=== PATIENT | male | born 1945 | race Caucasian/White ===

== ENCOUNTER 2017-09-11 14:07 | Emergency (ER) | payer MEDICARE, BC ==
[~2017-09-11] VITALS: Ht 182.9 cm; Wt 108.9 kg
[~2017-09-11 14:07] MED LIST: ACETAMINOPHEN325 M1 PO; ASPIRIN EC81 M1 PO; CARDIZEM CD240 MG PO; COUMADIN 2.5MG2.5 M1 PO; COUMADIN 5 MG TA5 M1 PO; DEPO-TESTO200 MG/1 M PO; EFFEXOR XR150 MG PO; FERREX-150 PLU150 MG PO; HYDROCHLOROTH12.5 MG PO; HYDROCODON-ACE1 EAC7 PO; HYTRIN10 MG PO; IRON325 PO; LOPRESSOR 50 MG50 M1 PO; MOM PO; MULTIVITAMINS PO; NAC600 MG PO; NORCO 5-325 TA1 EACH PO; PHENERGAN 25 MG25 M1 PO; PHISOHEX148 ML TOP; PRILOSEC 20 MG20 MG PO; SENOKOT-S1 TA1 PO; TAMSULOSIN HCL0.4 M1; TUMS PO; UNIVASC7.5 MG PO; ZOCOR40 MG PO; ZOVIRAX 5% CR2 G1 TP
[2017-09-11 15:17] VITALS: BP 130/84
== END 2017-09-11 15:18 | disposition home or self-care (01) ==
LOC: M.ERS 14:07
DX: S81.812A Laceration without foreign body, left lower leg, initial encounter (principal); I10 Essential (primary) hypertension; E78.5 Hyperlipidemia, unspecified; K21.9 Gastro-esophageal reflux disease without esophagitis; F32.9 Major depressive disorder, single episode, unspecified; M19.90 Unspecified osteoarthritis, unspecified site; Z86.2 Personal history of diseases of the blood and blood-forming organs and certain disorders involving the immune mechanism; Z88.6 Allergy status to analgesic agent; Z88.0 Allergy status to penicillin; Z88.1 Allergy status to other antibiotic agents; W26.0XXA Contact with knife, initial encounter; Y93.89 Activity, other specified; Y92.89 Other specified places as the place of occurrence of the external cause; Y99.8 Other external cause status

== ENCOUNTER → 2018-03-31 | Outpatient (CLI) | payer MEDICARE, BC ==
--- NOTE | 2018-03-31 14:35 | 2DMMODE ---
[place] [address] 2 D/M-MODE ECHOCARDIOGRAM Name: SONIAASPEN CANDIDO Room: [facility]#: [id number] Admission: 03/31/18 Attend Phys: Louie Saez MD Discharge: Date of : 41 Date of Service: 03/31/18 1435 Report #: [id number] THIS REPORT FOR: //name// APPROVED REPORT Study performed: 03/31/2018 08:15:25 EXAM: Comprehensive 2D, Doppler, and color-flow Echocardiogram Patient Location: Out-Patient BSA: 2.30 HR: 70 bpm BP: 120/80 mmHg Other Information Study Quality: Good Indications Aortic Valve Disease Aortic valve replacement 2D Dimensions IVSd: 15.50 (7-11mm) LVOT Diam: 20.58 (18-24mm) LVDd: 50.94 mm PWd: 11.89 (7-11mm) Ascending Ao: 44.72 (22-36mm) LVDs: 30.57 (25-40mm) Aortic Root: 27.92 mm Volumes Left Atrial Volume (Systole) LA ESV Index: 26.50 mL/m2 Aortic Valve AoV Peak Prosper.: 1.52 m/s AO Peak Gr.: 9.19 mmHg LVOT Max P.77 mmHg AO Mean Gr.: 4.39 mmHg LVOT Mean P.31 mmHg LVOT Max V: 0.83 m/s AO V2 VTI: 31.03 cm LVOT Mean V: 0.52 m/s SONIA (VTI): 2.05 cm2 LVOT V1 VTI: 19.12 cm Mitral Valve MV Peak Gr.: 5.62 mmHg MV Mean Gr.: 2.81 mmHg E/A Ratio: 0.73 MV Decel. Time: 269.35 ms MV E Max Prosper.: 0.84 m/s MV PHT: 78.11 [place] [address] 2 D/M-MODE ECHOCARDIOGRAM Name: SONIAASPEN Room: [facility]#: [id number] Admission: 03/31/18 Attend Phys: Louie Saez MD Discharge: Date of : 41 Date of Service: 03/31/18 1435 Report #: [id number] MVA (PHT): 2.82 cm2 TDI E/Lateral E': 8.40 E/Medial E': 9.33 Medial E' Prosper.: 0.09 m/s Lateral E' Prosper.: 0.10 m/s Pulmonary Valve PV Peak Prosper.: 1.05 m/s PV Peak Gr.: 4.45 mmHg Tricuspid Valve RAP Estimate: 5.00 mmHg TR Peak Gr.: 20.52 mmHg RVSP: 25.52 mmHg PA Pressure: 25.52 mmHg Left Ventricle The left ventricle is normal size. There is normal LV segmental wall motion. There is normal left ventricular wall thickness. Left ventricular systolic function is normal. LVEF is 55-60%. Grade I - abnormal relaxation pattern. Right Ventricle The right ventricle is normal size. The right ventricular systolic function is normal. Atria Left atrium is mildly dilated. Right atrium is mildly dilated. Aortic Valve Bioprosthetic aortic valve is present. Trace aortic regurgitation. There is no aortic valvular stenosis. Mitral Valve There is mild mitral annular calcification. Mild mitral regurgitation. No evidence of mitral valve stenosis. Tricuspid Valve The tricuspid valve is normal in structure. Mild tricuspid regurgitation. No pulmonary hypertension. Pulmonic Valve The pulmonary valve is normal in structure. Mild [place]mon[place] [address] 2 D/M-MODE ECHOCARDIOGRAM Name: ASPEN SCOTT Room: [facility]#: [id number] Admission: 03/31/18 Attend Phys: Louie Saez MD Discharge: Date of : 41 Date of Service: 03/31/18 1435 Report #: [id number] Great Vessels The aortic root is normal in size. 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 (4.45 CM) Pericardium There is no pericardial effusion. <Conclusion> The left ventricle is normal size. There is normal left ventricular wall thickness. Left ventricular systolic function is normal. LVEF is 55-60%. Grade I - abnormal relaxation pattern. Left atrium is mildly dilated. Right atrium is mildly dilated. Bioprosthetic aortic valve is present. Trace aortic regurgitation. There is no aortic valvular stenosis. There is mild mitral annular calcification. Mild mitral regurgitation. Mild tricuspid regurgitation. No pulmonary hypertension. 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 (4.45 CM) <ELECTRONICALLY SIGNED> By: Robert Andrade MD, FACC 03/31/18 1435 1435 1435 Robert Andrade MD, FACC /INF
== END ==
LOC: M.CRD 07:48
DX: I08.1 Rheumatic disorders of both mitral and tricuspid valves (principal); Z95.2 Presence of prosthetic heart valve

== ENCOUNTER 2019-11-24 09:31 | Emergency (ER) | payer MEDICARE, BC ==
[~2019-11-24] VITALS: Ht 180.3 cm; Wt 102.1 kg
[~2019-11-24 09:31] MED LIST changes: -PRILOSEC 20 MG20 MG PO; +PRILOSEC OTC20 MG PO
[2019-11-24] MEDS ORDERED: KAPSPARGO SPRIN50 MG PO (09:42)
[2019-11-24] MEDS ORDERED: LIPITOR 20 MG T20 M1 PO (09:43)
[2019-11-24 09:55] LABS: ABSOLUTE BASOPHILS 0.1 thou/uL (0.0-0.2); ABSOLUTE EOSINOPHILS 0.2 thou/uL (0.0-0.7); ABSOLUTE LYMPHOCYTES 1.7 thou/uL (0.8-5.3); ABSOLUTE MONOCYTES 0.4 thou/uL (0.0-1.2); BASOPHILS 1.1 %; EOSINOPHILS 2.7 %; HEMATOCRIT 36.3 % (42.0-52.0); HEMOGLOBIN 12.5 gm/dL (14.0-18.0); LYMPHOCYTES 22.7 %; MCH 32.4 pg (26.0-34.0); MCHC 34.4 g/dL (28.0-37.0); MCV 94.1 fL (80.0-100.0); MONOCYTES 5.5 %; MPV 7.6 fl. (7.2-11.1); NUCLEATED RBCS 0 /100WBC; PLATELET COUNT* 334 thou/uL (150-400); RBC 3.86 mil/uL (4.50-6.00); RDW-CV 13.9 % (10.5-14.5); WBC 7.3 thou/uL (4.0-11.0)
[2019-11-24 10:07] LABS: CALCIUM 8.9 mg/dL (8.5-10.1); CREATININE 1.3 mg/dL (0.6-1.3); POTASSIUM 4.2 mmol/L (3.5-5.1)
[2019-11-24 10:11] LABS: ALBUMIN 3.2 g/dL (3.4-5.0); APTT 26.7 Seconds (25.0-31.3); PROTIME 10.1 Seconds (9.20-11.50); TOTAL BILIRUBIN 0.3 mg/dL (<0.1-1.0); TOTAL PROTEIN 8.1 g/dL (6.4-8.2)
[2019-11-24 12:19] VITALS: BP 140/87
--- NOTE | 2019-11-24 14:33 | EKG ---
[place] [address] ELECTROCARDIOGRAM REPORT Name: HANNAH SCOTTMOND CANDIDO Room: [facility]#: [id number] Admission: 11/24/19 Attend Phys: Discharge: 11/24/19 Date of : 41 Date of Service: 11/24/19 0957 Report #: [id number] THIS REPORT FOR: //name// [facility] ED Test Date: 2019-11-24 Test Time: 09:57:11 Pat Name: ASPEN SCOTT Department: Room: Gender: [employer]: : 1945 Requested By: Jefferson Kevin Order Number: [id number] MD: Louie Saez Measurements Intervals [place]in Rate: 55 P: 60 SD: 199 QRS: -9 QRSD: 117 T: 9 QT: 429 QTc: 411 Interpretive Statements Sinus rhythm wandering baseline Compared to ECG 08/19/2010 08:16:38 Atrial premature complex(es) now present Possible ischemia no longer present Electronically Signed On 11-24-2019 14:33:39 CDT by Louie Saez [email or web address] <ELECTRONICALLY SIGNED> By: Louie Saez MD, [facility] 11/24/19 1433 0957 0957 Louie Saez MD, [facility] /EPI
== END 2019-11-24 12:20 | disposition home or self-care (01) ==
LOC: M.ERS 09:31
PROVIDERS: Family Medicine
DX: R53.1 Weakness (principal); I10 Essential (primary) hypertension; E78.5 Hyperlipidemia, unspecified; K21.9 Gastro-esophageal reflux disease without esophagitis; M19.90 Unspecified osteoarthritis, unspecified site; F32.9 Major depressive disorder, single episode, unspecified; Z86.2 Personal history of diseases of the blood and blood-forming organs and certain disorders involving the immune mechanism; Z88.0 Allergy status to penicillin; Z88.1 Allergy status to other antibiotic agents; Z88.2 Allergy status to sulfonamides; Z88.6 Allergy status to analgesic agent

== ENCOUNTER → 2020-12-11 | Outpatient (CLI) | payer MEDICARE, BC ==
[~2020-12-11] MED LIST changes: +KAPSPARGO SPRIN50 MG PO; +LIPITOR 20 MG T20 M1 PO
--- NOTE | 2020-12-11 16:37 | CARDNUC ---
[place] [address] CARDIAC NUCLEAR IMAGING REPORT Name: ASPEN SCOTT Room: [facility]#: [id number] Admission: 12/11/20 Attend Phys: Robert Andrade, Discharge: Date of : 41 Date of Service: 12/11/20 1637 Report #: [id number] THIS REPORT FOR: cc: Wayne Rodríguez Steve T. DO [place],Robert Allen MD [facility] ~ APPROVED REPORT Study performed: 12/11/2020 09:02:14 Indication: CAD, ABN EKG. Patient Location: Out-Patient Stress Nurse: ROMULO Castro Tech:ELDA Murray Ht: 5 ft 11 in Wt: 230 lbs BSA: 2.24 m2 BMI: 32.07 Medical History Medical History: CAD s/p CABG, Aortic valve replacement, HTN, HLD, past smoker, FHX CAD, WANG. Medications: ASA 81 MG, ATORVASTATIN, METOPROLOL. Allergies: PCN, Sulfa ABX, Tetracycline. Cardiac Risk Factors: Age, FHX of CAD, HTN, Hyperlipidemia, Past Smoker. Previous Cardiac Procedures: CABG, Aortic vavle replacement. Pretest Chest Pain Characteristics: No chest pain Exercise History: Physically active Physical Disabilities: NONE VOICED. Meds Held (24 hrs): Metoprolol. Resting Data Rest SPECT myocardial perfusion imaging was performed in supine position 30 minutes following the intravenous injection of 10.1 mCi of Tc-99m Sestamibi. Time of rest injection: 07:55 The images were gated to evaluate regional wall motion and calculate left ventricular ejection fraction. Administration Route: IV Administration Site: Right AC Exercise Stress At peak stress, the patient was injected intravenously with 35.4mCi of Tc-99[place] [address] CARDIAC NUCLEAR IMAGING REPORT Name: ASPEN SCOTT Room: [facility]#: [id number] Admission: 12/11/20 Attend Phys: Robert Andrade, Discharge: Date of : 41 Date of Service: 12/11/20 1637 Report #: [id number] Time of stress injection: 09:20 Administration Route: IV Administration Site: Right AC Heart Rate at time of stress injection: 145 bpm. Patient continued to exercise for 1 minute(s). Gated Stress SPECT was performed 40 minutes after stress injection. The images were gated to evaluate regional wall motion and calculate left ventricular ejection fraction. Prone imaging was performed. Stress Test Details Stress Test: Exercise stress testing was performed using a Qamar protocol. HR Max Heart Rate (APMHR): 143 bpm Resting HR: 91 bpm Target HR (85% APMHR): 121 bpm Max HR Achieved: 154 bpm % of APMHR: 107 Recovery HR: 99 bpm BP Resting BP: 131/93 mmHg Max BP: 215/107 mmHg Recovery BP: 148/102 mmHg ECG Resting ECG: Sinus rhythm with nonspecific intraventricular conduction delay and nonspecific ST segment depression Stress ECG: Sinus tachycardia with nonspecific intraventricular conduction delay and nonspecific ST segment depression ST Change: None Arrhythmia: None Recovery ECG: Sinus rhythm with nonspecific intraventricular conduction delay and nonspecific ST segment depression Recovery ST Change: None Recovery Arrhythmia: None Clinical Reason for Termination: Completed protocol Stress Symptoms: DYSPNEA Exercise duration: 6 min 27 sec Exercise capacity: 7.05 METs Overall Exercise Capacity for Age: Normal The patient tolerated standard Qamar protocol exercise stress testing without [place] [address] CARDIAC NUCLEAR IMAGING REPORT Name: ASPEN SCOTT Room: [facility]#: [id number] Admission: 12/11/20 Attend Phys: Robert Andrade, Discharge: Date of : 41 Date of Service: 12/11/20 1637 Report #: [id number] Nurse Comments PATIENT TOLERATED A TREADMILL NUCLEAR STRESS TEST THROUGH STAGE 2. TARGET HR ACHIEVED. PATIENT STATED HE FELT GOOD AT END OF RECOVERY. PATIENT WAS ESCORTED TO NUCLEAR MEDICINE FOR IMAGING. EXERCISE CAPACITY - NORMAL. Stress ECG Conclusion The baseline twelve-lead EKG shows sinus rhythm with nonspecific interventricular conduction delay and nonspecific ST segment depression. EKGs obtained during and post exercise show sinus rhythm and sinus tachycardia with no significant ST segment changes when compared to baseline. There were no stress-induced arrhythmias. Study Quality Study: Good Artifact: Mild Diaphragmatic artifact Study Data At rest, the left ventricular ejection fraction was 61%.. Post stress, the left ventricular ejection was 66%.. TID = 0.70. Perfusion Perfusion images obtained in the supine position at rest and post exercise show mild photopenia in the inferior wall that resolves completely with post-rest prone imaging consistent with diaphragmatic attenuation artifact. No other significant fixed or reversible defects were identified. Wall Motion Global LV systolic function is preserved. There is a septal wall motion abnormality noted consistent with prior bypass procedure. Nuclear Conclusion ECG Findings: non-diagnostic Clinical Findings: negative for ischemia Nuclear Findings: negative for ischemia Exercise Capacity: normal Left Ventricular Function: normal Risk Study: low Perfusion images show no defect to suggest infarct or ischemia. Left ventricular systolic function appears preserved on gated studies. This [place] [address] CARDIAC NUCLEAR IMAGING REPORT Name: ASPEN SCOTT Room: [facility]#: [id number] Admission: 12/11/20 Attend Phys: Robert Andrade, Discharge: Date of : 41 Date of Service: 12/11/20 1637 Report #: [id number] <Conclusion> The baseline twelve-lead EKG shows sinus rhythm with nonspecific interventricular conduction delay and nonspecific ST segment depression. EKGs obtained during and post exercise show sinus rhythm and sinus tachycardia with no significant ST segment changes when compared to baseline. There were no stress-induced arrhythmias. <ELECTRONICALLY SIGNED> By: Robert Andrade MD, FACC 12/11/20 1637 1637 1637 Robert Andrade MD, FACC /INF
== END ==
LOC: M.NUC 07:36
PROVIDERS: ATTEND Internal Medicine Cardiovascular Disease
DX: I25.10 Atherosclerotic heart disease of native coronary artery without angina pectoris (principal); R94.39 Abnormal result of other cardiovascular function study